=== PATIENT | male | born 1990 | race African-American/Black ===

== ENCOUNTER 2020-01-24 23:21 | Observation (INO) | payer OTHER ==
[2020-01-24] MEDS ORDERED: SODIUM CHLORIDE 0.9% 1000 ML 1,000 ML IV ONE ×2 (23:30→23:31)
[2020-01-24] MEDS ORDERED: GLUCAGON (HUMAN RECOMBINANT) 1 MG/ML INJ IV ONE (23:30)
[2020-01-24] MEDS ORDERED: SODIUM CHLORIDE 0.9% 1000 ML 2,000 ML ONE (23:30)
[2020-01-24] MEDS ORDERED: charcoal activated SOLUTION 25 GM/120 ML PO ONE (23:32)
[2020-01-24 23:58] LABS: Basophils # (Auto) 0.1 K/mm3 (0.0-0.1); Basophils % (Auto) 0.4 % (0.0-1.8); Eosinophils # (Auto) 0.2 K/mm3 (0.0-0.4); Eosinophils % (Auto) 1.5 % (0.0-4.3); Hematocrit 45.4 % (35.5-45.6); Hemoglobin 15.4 gm/dl (11.8-15.2); Lymphocytes % (Auto) 25.1 % (13.4-35.0); Mean Corpuscular HGB Conc 34 % (32-34); Mean Corpuscular Volume 88 fl (84-94); Monocytes # (Auto) 0.8 K/mm3 (0.0-0.8); Monocytes % (Auto) 6.8 % (0.0-7.3); Platelet Count 397 K/mm3 (140-440); Red Blood Count 5.19 M/mm3 (3.65-5.03); Red Cell Distribution Width 13.1 % (13.2-15.2)
[2020-01-25 00:14] LABS: BUN/Creatinine Ratio 11; Blood Urea Nitrogen 13 mg/dL (9-20); Calcium 8.8 mg/dL (8.4-10.2); Hemolysis Index 9
[2020-01-25] MEDS ORDERED: ONDANSETRON 4 MG/2 ML INJ ONE (00:14)
--- NOTE | 2020-01-25 00:30 | Emergency Department Report ---
<SYDNIE BOWERS - Last Filed: 01/25/20 05:03> ED Psych HPI - General Chief Complaint: Psych Stated Complaint: OVERDOSE/SUICIDE ATTEMPT Time Seen by Provider: 01/24/20 23:29 Source: EMS Mode of arrival: Stretcher - History of Present Illness Initial Comments: Patient is a 29-year-old Irish gentleman who attempted to commit suicide prior to arrival. Patient took his father's metoprolol and lisinopril and atorvastatin. Patient also took some unknown pain medications as well. Patient took 20 pills each of the blood pressure medications above. Patient family called paramedics patient was responsive but lethargic. Patient took the medications approximately hour and a half ago. MD Complaint: suicidal ideation, feels depressed Associated Symptoms: denies other symptoms If Self Harm: admits thoughts of, has acted on plan, intentional overdose - Related Data Allergies Allergy/AdvReac Type Severity Reaction Status Date / Time No Known Allergies Allergy Verified 01/25/20 01:53 ED Review of Systems Comment: All other systems reviewed and negative ED Physical Exam - General Limitations: Altered Mental Status General appearance: alert, lethargic (but wiull respond to commands) - Head Head exam: Present: atraumatic, normocephalic - Eye Eye exam: Present: normal appearance, PERRL, EOMI - ENT ENT exam: Present: mucous membranes moist - Neck Neck exam: Present: normal inspection - Respiratory Respiratory exam: Present: normal lung sounds bilaterally. Absent: respiratory distress, wheezes, rales, rhonchi - Cardiovascular Cardiovascular Exam: Present: regular rate, normal rhythm, normal heart sounds. Absent: systolic murmur, diastolic murmur, rubs, gallop - GI/Abdominal GI/Abdominal exam: Present: soft, normal bowel sounds. Absent: distended, tenderness, guarding, rebound - Rectal Rectal exam: Present: deferred - Extremities Exam Extremities exam: Present: normal inspection - Back Exam Back exam: Present: normal inspection - Neurological Exam Neurological exam: Present: alert, oriented X3 - Psychiatric Psychiatric exam: Present: normal affect, normal mood - Skin Skin exam: Present: warm, dry, intact, normal color. Absent: rash ED Course - Reevaluation(s) Reevaluation #1: 01/25/20 05:03 Patient map between 55 and 60 most of his time here in the emergency department. Patient had little response to 10 mg of glucagon or insulin. With time his blood pressure is improving naturally. Patient is alert oriented and in no distress. Because of the stability of the patient lapses and not do pressures at this time and allow the patient's blood pressure to normalize with IV fluids. ED Medical Decision Making - Lab Data Result diagrams: 01/24/20 23:42 01/24/20 23:42 - EKG Data -: EKG Interpreted by Me EKG shows normal: sinus rhythm, axis, intervals, QRS complexes, ST-T waves Rate: normal - EKG Data Interpretation: normal EKG ED Disposition Clinical Impression: Suicide attempt Overdose Qualifiers: Encounter type: initial encounter Injury intent: undetermined intent Qualified Code(s): T50.904A - Poisoning by unspecified drugs, medicaments and biological substances, undetermined, initial encounter Disposition: OP ADMIT IP TO THIS HOSP Condition: Stable Referrals: PRIMARY CARE, [Primary Care Provider] - 3-5 Days <SONA MENJIVAR - Last Filed: 01/25/20 08:53> ED Review of Systems ROS: Stated complaint: OVERDOSE/SUICIDE ATTEMPT Other details as noted in HPI ED Course Vital Signs 01/24/20 01/24/20 01/24/20 23:35 23:36 23:40 Temperature 99.3 F Pulse Rate 80 77 Respiratory 19 21 17 Rate Blood Pressure 83/49 Blood Pressure 83/49 [Left] O2 Sat by Pulse 97 97 Oximetry 01/24/20 01/25/20 01/25/20 23:50 00:00 00:10 Temperature Pulse Rate 75 76 75 Respiratory 23 20 19 Rate Blood Pressure 86/53 82/48 86/47 Blood Pressure [Left] O2 Sat by Pulse Oximetry 01/25/20 01/25/20 01/25/20 00:20 00:31 00:41 Temperature Pulse Rate 84 87 94 H Respiratory 23 20 19 Rate Blood Pressure 86/49 89/49 74/26 Blood Pressure [Left] O2 Sat by Pulse 91 97 95 Oximetry 01/25/20 01/25/20 01/25/20 00:50 01:00 01:10 Temperature Pulse Rate 86 82 76 Respiratory 17 20 17 Rate Blood Pressure 81/45 83/46 83/49 Blood Pressure [Left] O2 Sat by Pulse 97 98 98 Oximetry 04/15/20 04/15/20 04/15/20 01:25 01:31 01:41 Temperature Pulse Rate 89 77 76 Respiratory 18 19 21 Rate Blood Pressure 87/52 87/52 87/52 Blood Pressure [Left] O2 Sat by Pulse 98 97 Oximetry 01/25/20 01/25/20 01/25/20 01:51 02:01 02:11 Temperature Pulse Rate 75 82 77 Respiratory 21 19 19 Rate Blood Pressure 87/52 87/52 87/52 Blood Pressure [Left] O2 Sat by Pulse 97 97 95 Oximetry 01/25/20 01/25/20 01/25/20 02:21 02:41 03:33 Temperature Pulse Rate 82 78 Respiratory 18 18 Rate Blood Pressure 87/52 87/52 82/43 Blood Pressure [Left] O2 Sat by Pulse 93 97 97 Oximetry 01/25/20 01/25/20 01/25/20 03:41 03:51 04:11 Temperature Pulse Rate 79 82 Respiratory 24 18 Rate Blood Pressure 82/42 82/42 83/47 Blood Pressure [Left] O2 Sat by Pulse 95 96 97 Oximetry 01/25/20 01/25/20 04:30 04:41 Temperature Pulse Rate 80 80 Respiratory 18 20 Rate Blood Pressure 83/48 90/45 Blood Pressure [Left] O2 Sat by Pulse 96 95 Oximetry - Reevaluation(s) Reevaluation #2: Patient with persistent hypotension. Will check additional lab work. Meets criteria for medical admission. Will check x-ray. 01/25/20 06:48 Reevaluation #3: Spoke with hospitalist. Patient admitted to the medical service. I will request a PICC line. Blood pressure has been low essentially all evening. Patient is mentating well. I think a PICC line would be the best course of action in anticipation of the possible need for pressors 01/25/20 08:52 ED Medical Decision Making - Lab Data Result diagrams: 01/24/20 23:42 01/25/20 07:33 Laboratory Results - last 24 hr 01/24/20 01/24/20 01/24/20 23:42 23:42 23:42 WBC 11.8 H RBC 5.19 H Hgb 15.4 H Hct 45.4 MCV 88 MCH 30 MCHC 34 RDW 13.1 L Plt Count 397 Lymph % (Auto) 25.1 [place] % (Auto) 6.8 Eos % (Auto) 1.5 Baso % (Auto) 0.4 Lymph # 3.0 [place] # 0.8 Eos # 0.2 Baso # 0.1 Seg Neutrophils % 66.2 Seg Neutrophils # 7.8 H PT INR APTT Sodium 139 Potassium 4.0 Chloride 101.0 Carbon Dioxide 21 L Anion Gap 21 BUN 13 Creatinine 1.2 Estimated GFR > 60 BUN/Creatinine Ratio 11 Glucose 113 H POC Glucose Lactic Acid Calcium 8.8 Magnesium Total Creatine Kinase CK-MB (CK-2) CK-MB (CK-2) Rel Index Troponin T NT-Pro-B Natriuret Pep Urine Color Urine Turbidity Urine pH Ur Specific [place] Urine Protein Urine Glucose (UA) Urine Ketones Urine Blood Urine Nitrite Urine Bilirubin Urine Urobilinogen Ur Leukocyte Esterase Urine WBC (Auto) Urine RBC (Auto) U Epithel Cells (Auto) Urine Bacteria (Auto) Urine Mucus Salicylates < 0.3 L Urine Opiates Screen Urine Methadone Screen Acetaminophen Ur Barbiturates Screen Ur Phencyclidine Scrn Ur Amphetamines Screen U Benzodiazepines Scrn Urine Cocaine Screen U Marijuana (THC) Screen Drugs of Abuse Note Plasma/Serum Alcohol 01/24/20 01/24/20 01/25/20 23:42 23:42 00:44 WBC RBC Hgb Hct MCV MCH MCHC RDW Plt Count Lymph % (Auto) [place] % (Auto) Eos % (Auto) Baso % (Auto) Lymph # [place] # Eos # Baso # Seg Neutrophils % Seg Neutrophils # PT INR APTT Sodium Potassium Chloride Carbon Dioxide Anion Gap BUN Creatinine Estimated GFR BUN/Creatinine Ratio Glucose POC Glucose Lactic Acid Calcium Magnesium Total Creatine Kinase CK-MB (CK-2) CK-MB (CK-2) Rel Index Troponin T NT-Pro-B Natriuret Pep Urine Color Yellow Urine Turbidity Slightly-cloudy Urine pH 5.0 Ur Specific [place] 1.015 Urine Protein 30 mg/dl Urine Glucose (UA) Neg Urine Ketones Tr Urine Blood Neg Urine Nitrite Neg Urine Bilirubin Neg Urine Urobilinogen < 2.0 Ur Leukocyte Esterase Tr Urine WBC (Auto) 27.0 H Urine RBC (Auto) 2.0 U Epithel Cells (Auto) < 1.0 Urine Bacteria (Auto) 1+ Urine Mucus Few Salicylates Urine Opiates Screen Urine Methadone Screen Acetaminophen < 5.0 L Ur Barbiturates Screen Ur Phencyclidine Scrn Ur Amphetamines Screen U Benzodiazepines Scrn Urine Cocaine Screen U Marijuana (THC) Screen Drugs of Abuse Note Plasma/Serum Alcohol < 0.01 01/25/20 01/25/20 01/25/20 00:44 01:31 01:31 WBC RBC Hgb Hct MCV MCH MCHC RDW Plt Count Lymph % (Auto) [place] % (Auto) Eos % (Auto) Baso % (Auto) Lymph # [place] # Eos # Baso # Seg Neutrophils % Seg Neutrophils # PT INR APTT Sodium Potassium Chloride Carbon Dioxide Anion Gap BUN Creatinine Estimated GFR BUN/Creatinine Ratio Glucose POC Glucose Lactic Acid Calcium Magnesium Total Creatine Kinase CK-MB (CK-2) CK-MB (CK-2) Rel Index Troponin T NT-Pro-B Natriuret Pep Urine Color Urine Turbidity Urine pH Ur Specific [place] Urine Protein Urine Glucose (UA) Urine Ketones Urine Blood Urine Nitrite Urine Bilirubin Urine Urobilinogen Ur Leukocyte Esterase Urine WBC (Auto) Urine RBC (Auto) U Epithel Cells (Auto) Urine Bacteria (Auto) Urine Mucus Salicylates < 0.3 L Urine Opiates Screen Presumptive negative Urine Methadone Screen Presumptive negative Acetaminophen < 5.0 L Ur Barbiturates Screen Presumptive negative Ur Phencyclidine Scrn Presumptive negative Ur Amphetamines Screen Presumptive positive U Benzodiazepines Scrn Presumptive negative Urine Cocaine Screen Presumptive negative U Marijuana (THC) Screen Presumptive negative Drugs of Abuse Note Disclamer Plasma/Serum Alcohol 01/25/20 01/25/20 01/25/20 05:35 07:01 07:33 WBC RBC Hgb Hct MCV MCH MCHC RDW Plt Count Lymph % (Auto) [place] % (Auto) Eos % (Auto) Baso % (Auto) Lymph # [place] # Eos # Baso # Seg Neutrophils % Seg Neutrophils # PT INR APTT Sodium 142 Potassium 4.4 Chloride 110.0 H Carbon Dioxide 17 L Anion Gap 19 BUN 14 Creatinine 1.2 Estimated GFR > 60 BUN/Creatinine Ratio 12 Glucose 111 H POC Glucose 72 138 H Lactic Acid Calcium 8.0 L Magnesium Total Creatine Kinase 239 H CK-MB (CK-2) 2.1 CK-MB (CK-2) Rel Index 0.8 Troponin T NT-Pro-B Natriuret Pep Urine Color Urine Turbidity Urine pH Ur Specific [place] Urine Protein Urine Glucose (UA) Urine Ketones Urine Blood Urine Nitrite Urine Bilirubin Urine Urobilinogen Ur Leukocyte Esterase Urine WBC (Auto) Urine RBC (Auto) U Epithel Cells (Auto) Urine Bacteria (Auto) Urine Mucus Salicylates Urine Opiates Screen Urine Methadone Screen Acetaminophen Ur Barbiturates Screen Ur Phencyclidine Scrn Ur Amphetamines Screen U Benzodiazepines Scrn Urine Cocaine Screen U Marijuana (THC) Screen Drugs of Abuse Note Plasma/Serum Alcohol 01/25/20 01/25/20 01/25/20 07:33 07:33 07:33 WBC RBC Hgb Hct MCV MCH MCHC RDW Plt Count Lymph % (Auto) [place] % (Auto) Eos % (Auto) Baso % (Auto) Lymph # [place] # Eos # Baso # Seg Neutrophils % Seg Neutrophils # PT 14.9 INR 1.15 H APTT 31.6 Sodium Potassium Chloride Carbon Dioxide Anion Gap BUN Creatinine Estimated GFR BUN/Creatinine Ratio Glucose POC Glucose Lactic Acid 2.50 H* Calcium Magnesium 2.30 Total Creatine Kinase CK-MB (CK-2) CK-MB (CK-2) Rel Index Troponin T < 0.010 NT-Pro-B Natriuret Pep 35.69 Urine Color Urine Turbidity Urine pH Ur Specific [place] Urine Protein Urine Glucose (UA) Urine Ketones Urine Blood Urine Nitrite Urine Bilirubin Urine Urobilinogen Ur Leukocyte Esterase Urine WBC (Auto) Urine RBC (Auto) U Epithel Cells (Auto) Urine Bacteria (Auto) Urine Mucus Salicylates Urine Opiates Screen Urine Methadone Screen Acetaminophen Ur Barbiturates Screen Ur Phencyclidine Scrn Ur Amphetamines Screen U Benzodiazepines Scrn Urine Cocaine Screen U Marijuana (THC) Screen Drugs of Abuse Note Plasma/Serum Alcohol - EKG Data -: EKG Interpreted by Me EKG shows normal: sinus rhythm, axis, intervals, QRS complexes, ST-T waves Rate: normal - EKG Data Interpretation: normal EKG - Radiology Data Radiology results: report reviewed (No acute process), image reviewed Critical Care Time: Yes Critical care time in (mins) excluding proc time.: 45 Critical care attestation.: If time is entered above; I have spent that time in minutes in the direct care of this critically ill patient, excluding procedure time. ED Disposition Is pt being admited?: Yes Does the pt Need Aspirin: No Time of Disposition: 08:52
[2020-01-25 01:16] LABS: Benzodiazepines Screen,Urine PRESUMPTIVE NEGATIVE; Cannabinoid Screen,Urine PRESUMPTIVE NEGATIVE; Cocaine Screen,Urine PRESUMPTIVE NEGATIVE; Methadone Screen,Urine PRESUMPTIVE NEGATIVE; Opiate Screen,Urine PRESUMPTIVE NEGATIVE
[2020-01-25 01:17] LABS: Bacteria,Urine 1+ /HPF (Negative); Bilirubin,Urine NEG (Negative); Blood,Urine NEG (Negative); Color,Urine Yellow (Yellow); Urobilinogen,Urine < 2.0 mg/dL (<2.0)
[2020-01-25] MEDS ORDERED: GLUCAGON (HUMAN RECOMBINANT) 1 MG/ML INJ IV ONE (01:24)
[2020-01-25] MEDS ORDERED: SODIUM CHLORIDE 0.9% 1000 ML 1,000 ML IV ONE ×4 (01:24→06:04)
[2020-01-25 01:36] LABS: Amphetamine Screen,Urine PRESUMPTIVE POSITIVE
[2020-01-25 01:45] LABS: Mucus,Urine FEW /HPF
[2020-01-25] MEDS ORDERED: INSULIN REGULAR, HUMAN 100 UNITS/1 ML IV ONE (03:53)
[2020-01-25] MEDS ORDERED: DEXTROSE 50% IN WATER (25GM) 50 ML SYRINGE IV ONE (03:53)
--- NOTE | 2020-01-25 07:59 | XRay Report ---
CHEST 1 VIEW 01/25/2020 6:47 AM INDICATION / CLINICAL INFORMATION: hypertension. COMPARISON: None available. FINDINGS: SUPPORT DEVICES: None. HEART / MEDIASTINUM: No significant abnormality. LUNGS / PLEURA: No significant pulmonary or pleural abnormality. No pneumothorax. ADDITIONAL FINDINGS: No significant additional findings. IMPRESSION: 1. No acute findings. Signer Name: Chaz Bean MD Signed: 01/25/2020 7:54 AM Workstation Name: [id number]
[2020-01-25 08:19] LABS: INR 1.15 (0.87-1.13)
[2020-01-25 08:20] LABS: Partial Thromboplastin Time 31.6 Sec. (24.2-36.6)
[2020-01-25 08:24] LABS: Creatine Kinase MB 2.1 ng/mL (0.0-4.0)
[2020-01-25 08:25] LABS: BUN/Creatinine Ratio 12; Blood Urea Nitrogen 14 mg/dL (9-20); Hemolysis Index 22
--- NOTE | 2020-01-25 10:07 | History and Physical Report ---
History of Present Illness Date of examination: 01/25/20 Date of admission: 01/25/20 07:22 Chief complaint: Intentional drug overdose/suicidal attempt History of present illness: 29-year-old Samoan male patient with no significant past medical history was brought to the emergency room with history of intentional drug overdose by taking his father's metoprolol and lisinopril as well as atorvastatin to kill himself as he was severely depressed because of problems with his girlfriend. Patient took 20 pills of each. Patient complains of severe depression, and was teary while giving the history. Patient continues to have suicidal ideation, ER placed him 1013 status Patient denies any chest pain or shortness of breath Denies nausea vomiting or abdominal pain Complains of mild dizziness Blood pressures in the lower range, heart rate within normal limits PUI?: No Past History Past Medical History: No medical history Past Surgical History: No surgical history Social history: denies: smoking, alcohol abuse, prescription drug abuse Family history: hypertension Medications and Allergies Allergies Allergy/AdvReac Type Severity Reaction Status Date / Time No Known Allergies Allergy Verified 01/25/20 01:53 Home Medications Medication Instructions Recorded Confirmed Last Taken Type No Known Home Medications [No 01/25/20 01/25/20 Unknown History Reported Home Medications] Review of Systems Constitutional: fatigue, weakness, no weight loss, no weight gain Cardiovascular: no chest pain, no orthopnea, no palpitations Respiratory: no cough, no shortness of breath Gastrointestinal: no abdominal pain, no nausea, no vomiting Genitourinary Male: no dysuria, no hematuria Musculoskeletal: no neck stiffness, no myalgias, no arthritis Integumentary: no rash, no lesions Neurological: no numbness, no seizures Psychiatric: suicidal ideation, depression, no anxiety, no hallucinations Endocrine: no cold intolerance, no heat intolerance Hematologic/Lymphatic: no easy bruising, no easy bleeding Allergic/Immunologic: no urticaria, no allergic rhinitis Exam - Constitutional Vitals: Temp Pulse Resp BP Pulse Ox 99.3 F 82 19 92/52 98 01/24/20 23:36 01/25/20 09:21 01/25/20 09:21 01/25/20 09:21 01/25/20 09:21 General appearance: Present: mild distress, well-nourished - EENT Eyes: Present: PERRL, EOM intact - Neck Neck: Present: supple, normal ROM - Respiratory Respiratory effort: normal, labored - Cardiovascular Rhythm: regular Heart Sounds: Present: S1 & S2 - Extremities Extremities: no ischemia, No edema - Abdominal General gastrointestinal: Present: soft, non-tender, non-distended, normal bowel sounds - Integumentary Integumentary: Present: clear, warm - Musculoskeletal Musculoskeletal: strength equal bilaterally - Psychiatric Psychiatric: appropriate mood/affect, cooperative - Neurologic Neurologic: CNII-XII intact, moves all extremities Results - Labs CBC & Chem 7: 01/24/20 23:42 01/25/20 07:33 Labs: Abnormal lab results 01/24/20 01/24/20 01/24/20 Range/Units 23:42 23:42 23:42 WBC 11.8 H (4.5-11.0) K/mm3 RBC 5.19 H (3.65-5.03) M/mm3 Hgb 15.4 H (11.8-15.2) gm/dl RDW 13.1 L (13.2-15.2) % Seg Neutrophils # 7.8 H (1.8-7.7) K/mm3 INR (0.87-1.13) Chloride (98-107) mmol/L Carbon Dioxide 21 L (22-30) mmol/L Glucose 113 H (75-100) mg/dL POC Glucose (70-105) Lactic Acid (0.7-2.0) mmol/L Calcium (8.4-10.2) mg/dL Total Creatine Kinase (55-170) units/L Urine WBC (Auto) (0.0-6.0) /HPF Salicylates < 0.3 L (2.8-20.0) mg/dL Acetaminophen (10.0-30.0) ug/mL 01/24/20 01/25/20 01/25/20 Range/Units 23:42 00:44 01:31 WBC (4.5-11.0) K/mm3 RBC (3.65-5.03) M/mm3 Hgb (11.8-15.2) gm/dl RDW (13.2-15.2) % Seg Neutrophils # (1.8-7.7) K/mm3 INR (0.87-1.13) Chloride (98-107) mmol/L Carbon Dioxide (22-30) mmol/L Glucose (75-100) mg/dL POC Glucose (70-105) Lactic Acid (0.7-2.0) mmol/L Calcium (8.4-10.2) mg/dL Total Creatine Kinase (55-170) units/L Urine WBC (Auto) 27.0 H (0.0-6.0) /HPF Salicylates < 0.3 L (2.8-20.0) mg/dL Acetaminophen < 5.0 L (10.0-30.0) ug/mL 01/25/20 01/25/20 01/25/20 Range/Units 01:31 07:01 07:33 WBC (4.5-11.0) K/mm3 RBC (3.65-5.03) M/mm3 Hgb (11.8-15.2) gm/dl RDW (13.2-15.2) % Seg Neutrophils # (1.8-7.7) K/mm3 INR (0.87-1.13) Chloride 110.0 H (98-107) mmol/L Carbon Dioxide 17 L (22-30) mmol/L Glucose 111 H (75-100) mg/dL POC Glucose 138 H (70-105) Lactic Acid (0.7-2.0) mmol/L Calcium 8.0 L (8.4-10.2) mg/dL Total Creatine Kinase 239 H (55-170) units/L Urine WBC (Auto) (0.0-6.0) /HPF Salicylates (2.8-20.0) mg/dL Acetaminophen < 5.0 L (10.0-30.0) ug/mL 01/25/20 01/25/20 01/25/20 Range/Units 07:33 07:33 08:50 WBC (4.5-11.0) K/mm3 RBC (3.65-5.03) M/mm3 Hgb (11.8-15.2) gm/dl RDW (13.2-15.2) % Seg Neutrophils # (1.8-7.7) K/mm3 INR 1.15 H (0.87-1.13) Chloride (98-107) mmol/L Carbon Dioxide (22-30) mmol/L Glucose (75-100) mg/dL POC Glucose (70-105) Lactic Acid 2.50 H* 2.50 H* (0.7-2.0) mmol/L Calcium (8.4-10.2) mg/dL Total Creatine Kinase (55-170) units/L Urine WBC (Auto) (0.0-6.0) /HPF Salicylates (2.8-20.0) mg/dL Acetaminophen (10.0-30.0) ug/mL Assessment and Plan --Intentional drug overdose; With metoprolol and lisinopril Patient's blood pressures and heart rate reasonable level Closely monitor --Suicidal attempt; Patient broke up with his girlfriend and is severely depressed Wanted to harm himself and and took his fathers beta-blockers and lisinopril No dizziness no bradycardia no hypotension no confusion Suicidal watch/1013, Psych evaluation Supportive care --Persistent hypotension; no symptoms IV fluids, Closely monitor blood pressures --DVT prophylaxis; SCDs while resting 1013 status Monitor closely and adjust management as needed
--- NOTE | 2020-01-25 10:28 | History and Physical Report ---
History of Present Illness Date of admission: 01/25/20 07:22 Medications and Allergies Allergies Allergy/AdvReac Type Severity Reaction Status Date / Time No Known Allergies Allergy Verified 01/25/20 01:53 Active Meds: Active Medications Sodium Chloride (Nacl 0.9% 1000 Ml) 1,000 mls @ 75 mls/hr IV DIRECT TATUM Pantoprazole Sodium (Protonix) 40 mg PO QDAY TATUM Exam - Constitutional Vitals: Temp Pulse Resp BP Pulse Ox 99.3 F 80 18 82/49 96 01/24/20 23:36 01/25/20 10:11 01/25/20 10:11 01/25/20 10:11 01/25/20 10:11 Results - Labs CBC & Chem 7: 01/24/20 23:42 01/25/20 07:33 Labs: Abnormal lab results 01/24/20 01/24/20 01/24/20 Range/Units 23:42 23:42 23:42 WBC 11.8 H (4.5-11.0) K/mm3 RBC 5.19 H (3.65-5.03) M/mm3 Hgb 15.4 H (11.8-15.2) gm/dl RDW 13.1 L (13.2-15.2) % Seg Neutrophils # 7.8 H (1.8-7.7) K/mm3 INR (0.87-1.13) Chloride (98-107) mmol/L Carbon Dioxide 21 L (22-30) mmol/L Glucose 113 H (75-100) mg/dL POC Glucose (70-105) Lactic Acid (0.7-2.0) mmol/L Calcium (8.4-10.2) mg/dL Total Creatine Kinase (55-170) units/L Urine WBC (Auto) (0.0-6.0) /HPF Salicylates < 0.3 L (2.8-20.0) mg/dL Acetaminophen (10.0-30.0) ug/mL 01/24/20 01/25/20 01/25/20 Range/Units 23:42 00:44 01:31 WBC (4.5-11.0) K/mm3 RBC (3.65-5.03) M/mm3 Hgb (11.8-15.2) gm/dl RDW (13.2-15.2) % Seg Neutrophils # (1.8-7.7) K/mm3 INR (0.87-1.13) Chloride (98-107) mmol/L Carbon Dioxide (22-30) mmol/L Glucose (75-100) mg/dL POC Glucose (70-105) Lactic Acid (0.7-2.0) mmol/L Calcium (8.4-10.2) mg/dL Total Creatine Kinase (55-170) units/L Urine WBC (Auto) 27.0 H (0.0-6.0) /HPF Salicylates < 0.3 L (2.8-20.0) mg/dL Acetaminophen < 5.0 L (10.0-30.0) ug/mL 01/25/20 01/25/20 01/25/20 Range/Units 01:31 07:01 07:33 WBC (4.5-11.0) K/mm3 RBC (3.65-5.03) M/mm3 Hgb (11.8-15.2) gm/dl RDW (13.2-15.2) % Seg Neutrophils # (1.8-7.7) K/mm3 INR (0.87-1.13) Chloride 110.0 H (98-107) mmol/L Carbon Dioxide 17 L (22-30) mmol/L Glucose 111 H (75-100) mg/dL POC Glucose 138 H (70-105) Lactic Acid (0.7-2.0) mmol/L Calcium 8.0 L (8.4-10.2) mg/dL Total Creatine Kinase 239 H (55-170) units/L Urine WBC (Auto) (0.0-6.0) /HPF Salicylates (2.8-20.0) mg/dL Acetaminophen < 5.0 L (10.0-30.0) ug/mL 01/25/20 01/25/20 01/25/20 Range/Units 07:33 07:33 08:50 WBC (4.5-11.0) K/mm3 RBC (3.65-5.03) M/mm3 Hgb (11.8-15.2) gm/dl RDW (13.2-15.2) % Seg Neutrophils # (1.8-7.7) K/mm3 INR 1.15 H (0.87-1.13) Chloride (98-107) mmol/L Carbon Dioxide (22-30) mmol/L Glucose (75-100) mg/dL POC Glucose (70-105) Lactic Acid 2.50 H* 2.50 H* (0.7-2.0) mmol/L Calcium (8.4-10.2) mg/dL Total Creatine Kinase (55-170) units/L Urine WBC (Auto) (0.0-6.0) /HPF Salicylates (2.8-20.0) mg/dL Acetaminophen (10.0-30.0) ug/mL Assessment and Plan --Intentional drug overdose; With metoprolol and lisinopril Patient's blood pressures and heart rate reasonable level Closely monitor --Suicidal attempt; Suicidal watch/1013 Psych evaluation Supportive care --DVT prophylaxis; SCDs while resting Monitor closely and adjust management as needed
--- NOTE | 2020-01-25 11:06 | Consultation ---
History of Present Illness - Reason for Consult Consult date: 01/25/20 Reason for consult: Psych eval Requesting physician: SYDNIE BOWERS - Chief Complaint Chief complaint: I took overdose - History of Present Psychiatric Illness The patient is a 29yo male who presented to the ED after he overdosed on mu ltiple medications. psychiatry consulted to evaluate and recommend disposition. Per ED Provider: Patient is a 29-year-old [place] gentleman who attempted to commit suicide prior to arrival. Patient took his father's metoprolol and lisinopril and atorvastatin. Patient also took some unknown pain medications as well. Patient took 20 pills each of the blood pressure medications above. Patient family called paramedics patient was responsive but lethargic. Patient took the medications approximately hour and a half ago. Patient describes a good and stable mood, denies being depressed or excessively nervous. Patient eats and sleeps well. Patient denies panic attacks, recurrent nightmares or flashbacks. Patient denies symptoms suggestive of OCD or PTSD. Patient denies hallucinations, paranoia, thought interference and no features suggestive of hypomania or maricruz. She completely denies suicidal or homicidal thoughts. HPI: Patient seen by me this morning. He admits attempting to kill himself by overdosing on medications. He reports feeling depressed, with decreased sleep and appetite. He denies abusing substances. He denies hallucinations, paranoia or homicidal thoughts. PAST PSYCHIATRIC HISTORY: Patient denies Family Psychiatric History: None reported or documented SOCIAL HISTORY: Marital Status: Single Living Arrangements: With family Employment Status: Employed Access to guns/weapons: Patient denies History of Abuse: Patient denies Legal History: Patient denies REVIEW OF SYSTEMS: Constitutional: Negative for weight loss ENT: Negative for stridor Respiratory: Negative for cough or hemoptysis All other systems reviewed and are negative MENTAL STATUS: General Appearance and Behavior: age appropriate, good eye contact, cooperative with questioning and polite Cooperation: Cooperative Psychomotor Behavior: within normal limits Mood: Depressed Affect and affective range: Congruent with stated mood Thought Process: Fluent/Logical and Goal-directed Thought Content: Within reality Speech: Normal volume and Regular rate and rhythm Intellectual Functioning: Average Suicidal Ideation: Yes Homicidal Ideation: Denies HI Impulse Control: intact Insight and Judgment: normal insight and judgment Memory: Normal Attention: Normal Orientation: alert and oriented DIAGNOSIS: Major Depressive disorder, severe w/o psychosis RECOMMENDATIONS: MEDICATIONS: Celexa 10mg qd for depression Risks, benefits and alternatives of medications discussed with the patient, questions answered and consent obtained from patient. PSYCHOTHERAPY: Supportive psychotherapy provided MEDICAL: Per primary team PLUGGER: Yes DISPOSITION: Acute inpatient psychiatric hospitalization when medically stable LEGAL STATUS: 1013 FOLLOW-UP: Will follow Thank you for the consult. Please contact with any questions and/or concerns. Medications and Allergies Allergies Allergy/AdvReac Type Severity Reaction Status Date / Time No Known Allergies Allergy Verified 01/25/20 01:53 Active Meds: Active Medications Sodium Chloride (Nacl 0.9% 1000 Ml) 1,000 mls @ 75 mls/hr IV DIRECT TATUM Pantoprazole Sodium (Protonix) 40 mg PO QDAY TATUM Mental Status Exam - Vital signs Last Vital Signs Temp 99.3 F 01/24/20 23:36 Pulse 80 01/25/20 10:11 Resp 18 01/25/20 10:11 BP 82/49 01/25/20 10:11 Pulse Ox 96 01/25/20 10:11 Results Result Diagrams: 01/24/20 23:42 01/25/20 07:33 Abnormal lab results 01/24/20 01/24/20 01/24/20 Range/Units 23:42 23:42 23:42 WBC 11.8 H (4.5-11.0) K/mm3 RBC 5.19 H (3.65-5.03) M/mm3 Hgb 15.4 H (11.8-15.2) gm/dl RDW 13.1 L (13.2-15.2) % Seg Neutrophils # 7.8 H (1.8-7.7) K/mm3 INR (0.87-1.13) Chloride (98-107) mmol/L Carbon Dioxide 21 L (22-30) mmol/L Glucose 113 H (75-100) mg/dL POC Glucose (70-105) Lactic Acid (0.7-2.0) mmol/L Calcium (8.4-10.2) mg/dL Total Creatine Kinase (55-170) units/L Urine WBC (Auto) (0.0-6.0) /HPF Salicylates < 0.3 L (2.8-20.0) mg/dL Acetaminophen (10.0-30.0) ug/mL 01/24/20 01/25/20 01/25/20 Range/Units 23:42 00:44 01:31 WBC (4.5-11.0) K/mm3 RBC (3.65-5.03) M/mm3 Hgb (11.8-15.2) gm/dl RDW (13.2-15.2) % Seg Neutrophils # (1.8-7.7) K/mm3 INR (0.87-1.13) Chloride (98-107) mmol/L Carbon Dioxide (22-30) mmol/L Glucose (75-100) mg/dL POC Glucose (70-105) Lactic Acid (0.7-2.0) mmol/L Calcium (8.4-10.2) mg/dL Total Creatine Kinase (55-170) units/L Urine WBC (Auto) 27.0 H (0.0-6.0) /HPF Salicylates < 0.3 L (2.8-20.0) mg/dL Acetaminophen < 5.0 L (10.0-30.0) ug/mL 01/25/20 01/25/20 01/25/20 Range/Units 01:31 07:01 07:33 WBC (4.5-11.0) K/mm3 RBC (3.65-5.03) M/mm3 Hgb (11.8-15.2) gm/dl RDW (13.2-15.2) % Seg Neutrophils # (1.8-7.7) K/mm3 INR (0.87-1.13) Chloride 110.0 H (98-107) mmol/L Carbon Dioxide 17 L (22-30) mmol/L Glucose 111 H (75-100) mg/dL POC Glucose 138 H (70-105) Lactic Acid (0.7-2.0) mmol/L Calcium 8.0 L (8.4-10.2) mg/dL Total Creatine Kinase 239 H (55-170) units/L Urine WBC (Auto) (0.0-6.0) /HPF Salicylates (2.8-20.0) mg/dL Acetaminophen < 5.0 L (10.0-30.0) ug/mL 01/25/20 01/25/20 01/25/20 Range/Units 07:33 07:33 08:50 WBC (4.5-11.0) K/mm3 RBC (3.65-5.03) M/mm3 Hgb (11.8-15.2) gm/dl RDW (13.2-15.2) % Seg Neutrophils # (1.8-7.7) K/mm3 INR 1.15 H (0.87-1.13) Chloride (98-107) mmol/L Carbon Dioxide (22-30) mmol/L Glucose (75-100) mg/dL POC Glucose (70-105) Lactic Acid 2.50 H* 2.50 H* (0.7-2.0) mmol/L Calcium (8.4-10.2) mg/dL Total Creatine Kinase (55-170) units/L Urine WBC (Auto) (0.0-6.0) /HPF Salicylates (2.8-20.0) mg/dL Acetaminophen (10.0-30.0) ug/mL All other labs normal.
[2020-01-25] MEDS ORDERED: PANTOPRAZOLE 40 MG TAB PO ONE (11:52)
[2020-01-25] MEDS: PANTOPRAZOLE 40 MG TAB PO SCH (11:53)
[2020-01-25] MEDS: SODIUM CHLORIDE 0.9% 1000 ML 1,000 ML IV SCH ×2 (13:22→18:09)
[2020-01-26] MEDS: SODIUM CHLORIDE 0.9% 1000 ML 1,000 ML IV SCH (05:46)
[2020-01-26] MEDS: PANTOPRAZOLE 40 MG TAB PO SCH (09:55)
[2020-01-26] MEDS ORDERED: CITALOPRAM 10 MG TAB PO SCH (10:00)
--- NOTE | 2020-01-26 11:58 | Progress Note ---
Subjective - Reason for Consult Consult date: 01/26/20 Reason for consult: Psych follow up - Chief Complaint Chief complaint: No new complaints SUBJECTIVE: Patient seen via Telemed with Nursing Staff at bedside. Patient is alert, calm and pleasant. He reports feeling good and completely denies SI/HI/ACH/Paranoia. REVIEW OF SYSTEMS: Constitutional: Negative for weight loss ENT: Negative for stridor Respiratory: Negative for cough or hemoptysis All other systems reviewed and are negative MENTAL STATUS: General Appearance and Behavior: age appropriate, good eye contact, cooperative with questioning and polite Cooperation: Cooperative Psychomotor Behavior: within normal limits Mood: OK Affect and affective range: Congruent with stated mood Thought Process: Fluent/Logical and Goal-directed Thought Content: Within reality Speech: Normal volume and Regular rate and rhythm Intellectual Functioning: Average Suicidal Ideation:Denies SI Homicidal Ideation: Denies HI Impulse Control: intact Insight and Judgment: normal insight and judgment Memory: Normal Attention: Normal Orientation: alert and oriented DIAGNOSIS: Major Depressive disorder, severe w/o psychosis RECOMMENDATIONS: MEDICATIONS: Continue Celexa 10mg qd for depression Risks, benefits and alternatives of medications discussed with the patient, questions answered and consent obtained from patient. PSYCHOTHERAPY: Supportive psychotherapy provided MEDICAL: Per primary team PRECISION ASSEMBLER BENCH: N/A DISPOSITION: No indication for acute inpatient psychiatric hospitalization at this present time LEGAL STATUS: 1013 rescinded FOLLOW-UP: Will sign off Thank you for the consult. Please contact with any questions and/or concerns. Mental Status Exam - Vital signs Last Vital Signs Temp 97.5 F L 01/26/20 07:53 Pulse 73 01/26/20 07:53 Resp 16 01/26/20 07:53 BP 103/72 01/26/20 07:53 Pulse Ox 95 01/26/20 07:53
--- NOTE | 2020-01-26 12:29 | Discharge Summary ---
Providers - Providers Date of Admission: 01/25/20 07:22 Date of discharge: 01/26/20 Attending physician: RICARDA LORENZANA 01/24/20 23:30 Consult to Mental Health [CONS] Urgent Reason For Exam: Suicide attempt Primary care physician: [facility] Hospitalization Reason for admission: Intentional drug overdose/Suicidal attempt Condition: Stable Pertinent studies: CXR Hospital course: 29-year-old [place] male patient with no significant past medical history was brought to the emergency room with history of intentional drug overdose by taking his father's metoprolol and lisinopril as well as atorvastatin to kill himself as he was severely depressed because of problems with his girlfriend. Patient took 20 pills of each. Patient complains of severe depression, and was teary while giving the history. Patient continues to have suicidal ideation, ER placed him 1013 status Admitted,symptomatically managed,placed on suicidal watch,evaluated by psych, symptoms significantly improved.Patient feels better,no new episodes of depression or suicidal ideation. Psych cleared of 1013.cleared for dc anfd f/u PMD and psych per schedule Discharge Diagnosis: --Intentional drug overdose; With metoprolol and lisinopril Patient's blood pressures and heart rate reasonable level Closely monitor --Suicidal attempt; Patient broke up with his girlfriend and is severely depressed Wanted to harm himself and and took his fathers beta-blockers and lisinopril No dizziness no bradycardia no hypotension no confusion Suicidal watch/1013, Psych evaluation Supportive care --Persistent hypotension; no symptoms IV fluids, Closely monitor blood pressures --DVT prophylaxis; SCDs while resting 1013 status dced by psych. Stable at DC Disposition: DC-01 TO HOME OR SELFCARE Time spent for discharge: 32 min Core Measure Documentation - Palliative Care Palliative Care/ Comfort Measures: Not Applicable - Core Measures Any of the following diagnoses?: none Exam - Constitutional Vitals: Temp Pulse Resp BP Pulse Ox 97.5 F L 84 16 103/72 95 01/26/20 07:53 01/26/20 09:00 01/26/20 07:53 01/26/20 07:53 01/26/20 07:53 General appearance: Present: no acute distress, well-nourished - EENT Eyes: Present: PERRL, EOM intact - Neck Neck: Present: supple, normal ROM - Respiratory Respiratory effort: normal Respiratory: negative: diminished, rales, rhonchi, wheezing - Cardiovascular Rhythm: regular Heart Sounds: Present: S1 & S2 - Extremities Extremities: no ischemia, No edema - Abdominal General gastrointestinal: Present: soft, non-tender, non-distended, normal bowel sounds - Integumentary Integumentary: Present: clear, warm - Musculoskeletal Musculoskeletal: strength equal bilaterally - Psychiatric Psychiatric: appropriate mood/affect, cooperative - Neurologic Neurologic: CNII-XII intact, moves all extremities Plan Activity: no restrictions Diet: regular Additional Instructions: Follow [facility] in 3 to 4 days. If your symptoms become worse contact MD or go to emergency room Follow up with: PRIMARY CARE,MD [Primary Care Provider] - 3-5 Days Prescriptions: Citalopram [celeXA] 10 mg PO QDAY #14 tablet
[2020-01-26 12:53] VITALS: BP 111/73
== END 2020-01-26 14:45 | disposition home or self-care (01) ==
LOC: ED 23:21 → 4A 01-25 07:22
PROVIDERS: ADMIT Internal Medicine; ATTEND Internal Medicine
DX: T14.91XA Suicide attempt, initial encounter (principal); T44.7X2A Poisoning by beta-adrenoreceptor antagonists, intentional self-harm, initial encounter; I95.9 Hypotension, unspecified; T46.4X2A Poisoning by angiotensin-converting-enzyme inhibitors, intentional self-harm, initial encounter; F32.9 Major depressive disorder, single episode, unspecified; X58.XXXA Exposure to other specified factors, initial encounter; Y93.89 Activity, other specified; Y92.89 Other specified places as the place of occurrence of the external cause
CPT/HCPCS: 36415; 71045; 80048; 80307; 81001; 82140; 82550; 82553; 82962; 83735; 83880; 84484; 85025; 85610; 85730; 87086; 93005; 93010; 96361; 96374; 96375; 96376; 99291; G0378; J1610; J2405; J7030; 80320; G0480; J1815